=== PATIENT | female | born 1965 | race Caucasian/White ===

== ENCOUNTER 2018-04-09 07:06 | Day surgery (SDC) | payer OTHER, SELFPAY ==
[2018-04-09 07:32] VITALS: BP 113/55; PULSE 69; RESP 24; TEMP 36.7; O2SAT 95; BMI 23.8
[2018-04-09] MEDS: SODIUM CHLORIDE 0.9% 1,000 ML 200 ML IV (07:46)
--- NOTE | 2018-04-09 07:52 | PM.HP.1 ---
History of Present Illness Date Patient Seen: 04/09/18 Time Patient Seen: 07:52 Chief complaint: colonoscopy [id number] Narrative: 52-year-old female who presents for colorectal screening. She has never had any type of previous screening examination. On further history today she denies any recent gastrointestinal symptoms. Denies any nausea, vomiting, abdominal pain, loss of appetite, unexplained weight loss, change in bowel habits, diarrhea, constipation, melena, hematochezia, or bright red blood per rectum. Patient History Medical History Chronic back pain (Acute) Heart murmur (Acute) Migraine headache (Acute) Psoriasis (Acute) Surgical History History of section (Acute) History of sinus surgery (Acute) Family & Social History Family History: Reviewed 04/09/18 by Rusty Watkins MD Social History: household members spouse Tobacco & Substance use: Smoking Status Never smoker Meds Home Medications Medication Instructions Recorded Confirmed Type acetaminophen 325 mg PO PRN PRN #0 12/06/17 04/09/18 History diphenhydramine HCl [Banophen 2.5 mg PO PRN PRN #0 12/06/17 04/09/18 History Allergy] fluticasone [Flonase Allergy 9.9 ml INTRANASAL DAILY #0 12/06/17 04/09/18 History Relief] ondansetron 4 mg PO PRN PRN #0 12/06/17 04/09/18 History propranolol 10 mg PO DAILY #0 12/06/17 04/09/18 History zonisamide 100 mg capsule 100 mg PO QDAY #30 cap 03/06/18 04/09/18 Rx meloxicam 15 mg tablet 15 mg PO DAILY #30 tab 04/05/18 04/09/18 Rx Allergies Allergy/AdvReac Type Severity Reaction Status Date / Time gluten [GLUTEN] AdvReac Unknown HEADACHES Verified 04/09/18 07:21 Review of Systems Review of Systems All systems reviewed & are unremarkable except as noted in HPI and below Exam Vital Signs (past 8 hours): - 04/09/18 07:32 Temperature 98.1 F Pulse Rate 69 Respiratory Rate 24 Blood Pressure 113/55 L Pulse Oximetry 95 Oxygen Delivery Method Room Air Narrative Exam Narrative: Well-nourished well-developed female in no acute distress. Alert oriented x3. Sclera nonicteric Chest clear to auscultation bilaterally with regular rate and rhythm. Mild grade 1 systolic ejection murmur. No gallops or rubs. No crackles or wheezes Abdomen is soft, nondistended, nontender, no masses Extremities show no clubbing, cyanosis, or edema Objective Labs Labs: No recent laboratory or radiographic studies for review Assessment & Plan Plan: Assessment/Plan Narrative: 52-year-old female requiring colorectal screening by age criteria. Recommend colonoscopy. Technical details of the procedure were discussed at length. Risks, benefits, alternatives were explained. Risks including but not limited to sedation, aspiration, bleeding, pain, missed lesion, incomplete examination, need for further radiographic studies, colonic perforation, need for major abdominal surgery, and all attendant risks and major surgery were discussed at length. All questions were answered to her satisfaction, and she voiced understanding. Consent was placed on the chart. We will proceed as above.
--- NOTE | 2018-04-09 07:56 | PM.PREOP ---
Pre-operative Note Interval Note Pre-op Check: History & Physical Reviewed by Physician, Exam Performed and History & Physical exam performed today H&P completed within 30 days and has changed as indicated here:: Patient seen and examined today. History physical examination on the chart. Patient requires colorectal screening by age criteria. Proceed with colonoscopy today as planned. ASA Class (for procedural sedation): I
[2018-04-09] MEDS: fentaNYL 250 MCG/5 ML INJ IV (08:07)
[2018-04-09] MEDS: MIDAZOLAM 5 MG/5 ML VIAL IV (08:08)
--- NOTE | 2018-04-09 08:16 | PM.OP.ENDO ---
Operative Date/Time/Diagnoses Date of procedure: 04/09/18 Time of procedure: 08:16 Pre-op diagnosis: Colorectal screening Post-op diagnosis: other (Normal colon and rectum) Procedure & Clinicians Study performed: 1. Sedation per surgeon 2. Colonoscopy Same procedure as scheduled: Yes Indications: 52-year-old female who presents for colorectal screening. Colonoscopy is recommended. Surgeon: Rusty Watkins Procedure Notes SCOAP/Timeout: Yes Procedure in detail: After obtaining informed consent, the patient was brought to the GI suite and placed in the left lateral decubitus position on the examination table. After placement of appropriate monitors, the patient was given incremental doses of Versed and Fentanyl until an appropriate level of sedation was achieved. A time out was held per SCOAP protocol. A digital rectal examination was performed and did not reveal any masses or obstructing lesions. The colonoscope was gently passed into the patient's anus and the entire colon navigated to the level of the cecum with minimal difficulty. Once in the cecum, the scope was withdrawn being sure to go before and beyond all mucosal folds and prominences and get an excellent examination. The findings are noted above. At the level of the rectal vault, the scope was retroflexed and the internal anal canal was examined. The scope was straightened and air aspirated from the colon. The instrument was removed from the patient's body and the procedure was concluded. The patient was allowed to awaken from sedation without difficulty and taken to the post-anesthesia care unit in good condition. Scope withdrawal time: 8:35 min Sedation minutes: 17 Findings: other findings (Normal colon and rectum) Specimen(s): none sent Complications: none Recommendations: Colonscopy in 10 years Plan for aftercare: 1. Discharged home Follow up: as needed Disposition: same day surgery
[2018-04-09 08:17] VITALS: BP 99/58; PULSE 59; RESP 11; TEMP 36.4; O2SAT 93
[2018-04-09 08:22] VITALS: BP 98/53; PULSE 58; RESP 11; O2SAT 94
[2018-04-09 08:27] VITALS: BP 99/56; PULSE 69; RESP 15; TEMP 36.2; O2SAT 96
[2018-04-09 08:35] VITALS: BP 105/56; PULSE 58; RESP 18; TEMP 36.1; O2SAT 98
== END 2018-04-09 08:47 | disposition home or self-care (01) ==
PROVIDERS: PCP Physician Assistant Medical; Visit Provider Surgery
PROC: 0DJD8ZZ Inspection of Lower Intestinal Tract, Via Natural or Artificial Opening Endoscopic (ICD-10-PCS; CPT 45378; principal; 2018-04-09 07:45)
DX: Z12.11 Encounter for screening for malignant neoplasm of colon (principal)
CPT/HCPCS: 45378; 99152; J2250; J3010

== ENCOUNTER → 2018-05-07 06:47 | Outpatient (CLI) | payer OTHER, SELFPAY ==
--- NOTE | 2018-05-07 06:49 | DI.MRI.S_ITS ---
PROCEDURE: MR CERVICAL SPINE WO CON INDICATIONS: pain TECHNIQUE: Noncontrast sagittal T1 spin echo and T2 fast spin echo, sagittal STIR, foraminal oblique sagittal T2 fast spin echo, and axial gradient echo or T2 fast spin echo through the cervical spine. COMPARISON: None. FINDINGS: Image quality: Excellent. Alignment and Curvature: There is normal bony alignment. Bone Marrow: Marrow demonstrates normal overall signal. Spinal Cord: Visualized spinal cord has normal size and signal. No cerebellar tonsillar herniation. Paraspinous Soft Tissues: No paravertebral masses. Prevertebral soft tissues are normal in thickness. C2-C3: Disc degeneration with posterolateral annular bulge/osseous ridge, left greater than right, partially effacing the thecal sac. No cord distortion. Mild central canal stenosis. No foraminal stenosis. C3-C4: Disc degeneration with broad-based annular bulge accentuated on the right, effacing the thecal sac anteriorly with mild flattening of the ventral cord, moderate central stenosis. There is moderate right and mild left foraminal stenosis. C4-C5: Mild disc narrowing and moderate signal loss, mild posterior annular bulge. Left uncinate hypertrophy. Mild central canal and right foraminal stenosis. Moderate left foraminal stenosis. C5-C6: Mild disc narrowing and signal loss with broad-based annular bulge partially effacing the thecal sac, and no cord deformity, mild central canal stenosis. Mild bilateral facet arthropathy. Mild bilateral foraminal stenosis. C6-C7: Mild disc narrowing and signal loss with broad-based annular bulge/osseous ridge, uncinate hypertrophy best seen on oblique views. No cord deformity, mild central canal stenosis. Mild bilateral foraminal stenosis. C7-T1: Normal appearance. IMPRESSION: 1. Multilevel degenerative disc disease with annular bulging. 2. Moderate central canal stenosis at C3-4, mild at C2-3, C4-5, C5-6 and C6-7. 3. Foraminal stenosis is moderate on the right at C3-4 and on the left at C4-5. Mild foraminal stenosis at other levels. Dictated by: Cruziot Banegas M.D. on 05/07/2018 at 9:04 Approved by: Cruzito Banegas M.D. on 05/07/2018 at 9:20
== END ==
PROVIDERS: PCP Physician Assistant Medical; Visit Provider Physical Medicine & Rehabilitation
DX: M50.31 Other cervical disc degeneration, high cervical region (principal); M48.02 Spinal stenosis, cervical region; M50.21 Other cervical disc displacement, high cervical region; G89.29 Other chronic pain
CPT/HCPCS: 72141

== ENCOUNTER 2018-06-06 08:16 | Outpatient (CLI) | payer OTHER, SELFPAY ==
[2018-06-06] VITALS (11 sets, daily range): BP systolic 91–121; BP diastolic 43–73; PULSE 58–70; RESP 16–25; TEMP 36.6; O2SAT 97–100
--- NOTE | 2018-06-06 08:17 | DI.RAD.S_ITS ---
PROCEDURE: PAIN C/T INTERLAMINAR INJECT INDICATIONS: RADICULOPATHY FINDINGS: Fluoroscopic spot filming was performed to verify placement of spinal needles at the C6-C7 posterior paramedian interlaminar level(s), as labeled on the films. Appropriate location(s) of the needle tip(s) was confirmed by injection of iodinated contrast. IMPRESSION: Successful interlaminar needle tip localization at the C6-7 level for epidural steroid injection. Dictated by: José Long M.D. on 06/06/2018 at 14:04 Approved by: José Long M.D. on 06/06/2018 at 14:05
[2018-06-06] MEDS: LIDOCAINE 1% 20 ML INJ 5 ML INJ (09:19)
[2018-06-06] MEDS: DEXAMETHASONE 10 MG/ML VIAL 30 MG INJ (09:20)
[2018-06-06] MEDS: IOPAMIDOL 15 ML VIAL 3 ML INJ (09:20)
[2018-06-06] MEDS: MIDAZOLAM 5 MG/5 ML VIAL IV (09:21)
--- NOTE | 2018-06-06 09:32 | PM.PROC.1 ---
Procedures Date/Time Date of procedure: 06/06/18 Time of procedure: 09:32 General Procedure description: PREOP DIAGNOSIS 1. CERVICAL STENOSIS, 2. CERVICAL HNP WITH UPPER EXTREMITY RADICULAR FEATURES, POST OP DIAGNOSIS 1. CERVICAL STENOSIS, 2. CERVICAL HNP WITH UPPER EXTREMITY RADICULAR FEATURES, PROCEDURES 1. FLUORSCOPICALLY GUIDED CONTRAST CONTROLLED INTERLAMINAR EPIDURAL STEROID INJECTION - C6/7 TL PAUL PHYSICIAN: Devon Zheng, INDICATIONS Anaya is referred by PAC Manuel for treatment of Cervical HNP with Upper Extremity Paresthesias. FINDINGS Cervical Stenosis due to disc deterioration and nerve root irritation and nerve root irritation DESCRIPTION OF PROCEDURE Fluoroscopically guided, contrast-controlled C6/7 translaminar epidural steroid injection with conscious sedation. Following denial of allergy and review of potential side effects and complications, including, but not necessarily limited to, infection, allergic reaction, local tissue breakdown, temporary as well as permanent nerve injury, stroke, paralysis, and possible , the patient indicated that patient understood and agreed to proceed. An informed consent document was signed by the patient, witnessed by a nurse, and placed in the patient's chart. Additionally, other treatment options including modalities, medications, and physical therapy were reviewed with the patient. After review of previous anaesthesic history and IV conscious sedation the patient was deemed safe to proceed with todays procedure with IV conscious sedation as ASA class II designation. Safety time-out was performed to confirm patient ID, procedure to be performed and site of procedure. IV sedation was accomplished with a combination of 4mg of Versed administered by the RN after DO order, titrated to patient comfort during the course of the procedure while the patient remained responsive to all verbal commands. In the prone position, following sterile prep and drape of the cervical region, the C6/7 translaminar space was identified fluoroscopically. The skin was anesthetized via a 25-gauge 1.5-inch needle with 1% lidocaine solution. At this point, a 25-gauge, 2.5-inch short bevel spinal needle was atraumatically introduced and advanced under fluoroscopic guidance into epidural space at the C6/7 translaminar space. Depth was confirmed on lateral view. Radiological data, including multiple fluoroscopic views of the cervical spine, reveal a spinal needle at the C6/7 translaminar space. Lateral views then show placement of the needle in the epidural space. Subsequent views show contrast material flowing superiorly and inferiorly in the epidural space. DSA fluoroscopy with live contrast injection, once again, confirmed no vascular or intrathecal uptake. At this point, using loss of resistance technique with saline and air, the epidural space was entered. Following negative aspiration, injection of approximately 1.5 cc of Isovue-200 with live fluoroscopy in the AP view confirmed epidural flow in the epidural space without vascular or intrathecal uptake observed. Subsequently, a test dose of 1 cc of 1% lidocaine solution was injected and patient was observed for two minutes without signs or symptoms of complications, including abdominal pain, shortness of breath, bilateral upper or lower extremity weakness, nausea and vomiting, prior to steroid injection. At this point, 3 cc or 30 mg of dexamethasone was then injected without incident. The patient tolerated the procedure well without signs or symptoms of complications prior to being transferred to the recovery area for further monitoring, The patient was then transferred to the recovery area where they were observed for an appropriate period of time after the injection. The patient reported a VAS score of 6 prior to the procedure and a post-procedure VAS of 0. Total Fluoroscopy Time: 37.0 seconds Total Conscious Time: 24min POST OP INSTRUCTIONS The patient was provided a Pain Log to continue to record their response to the target-specific procedure prior to follow-up visit with the referring provider. Additionally, specific post-injection care instructions and a contact number to our office were provided if concerns arise regarding possible complications associated with the procedure are suspected. Devon Zheng DO Complications: none
--- NOTE | 2018-06-06 09:37 | PC.NURSE ---
PT NOTED TO HAVE LOW BUT STABLE AND CONSISTENT BP'S IN PRE AND POST-OP PROCEDURE ROOM OF 93/53 AND 96/56, ALL OTHER BP'S TAKEN WERE SIMILAR, SEE VITALS FOR MORE DETAILS. PT DENIES DIZZINESS, CONFUSION, LIGHT HEADEDNESS, ETC. PT STATED IN PRE-OP THAT SHE HISTORICALLY HAS LOW BP'S. CONSULTED WITH DR. MARQUEZ BEFORE PROCEDURE AND WILL UPON HIS ARRIVAL AFTER. DUE TO PT'S HISTORY, PHYSICAL PRESENTATION AND CONSISTENT BP'S, IV FLUIDS WERE NOT STARTED AT THIS TIME. WILL START IF PRESSURES ARE NOTED TO GO LOWER.
--- NOTE | 2018-06-06 09:43 | PC.NURSE ---
ALL VSS AND NEW BP CUFF PUT ONTO PT. NEW BP IS NOW HIGHER WITH NEW CUFF. PT CONTINUES TO DENY S/S OF LOW BP'S.
== END 2018-06-06 10:29 | disposition home or self-care (01) ==
PROVIDERS: PCP Physician Assistant Medical; Visit Provider Physical Medicine & Rehabilitation
DX: M48.02 Spinal stenosis, cervical region (principal); M50.123 Cervical disc disorder at C6-C7 level with radiculopathy
CPT/HCPCS: 62321; 99152; 99153; J1100; J2250

== ENCOUNTER → 2018-08-06 12:43 | Outpatient (CLI) | payer OTHER, SELFPAY ==
[2018-08-06 13:34] LABS: Add Manual Diff / Slide Review NO; Basophils Percent Auto 0.9 % (0-2); Eosinophils Percent Auto 1.6 % (2-4); Hematocrit 37.9 % (36-46); Hemoglobin 12.8 g/dL (12.0-16.0); Lymphocytes Percent Auto 28.7 % (25-40); Mean Corpuscular HGB Conc 33.7 % (30-36); Mean Corpuscular Hemoglobin 30.3 PG (26-34); Mean Corpuscular Volume 89.8 fL (80-100); Monocytes Percent Auto 8.1 % (3-14); Neutrophils Absolute Auto 2500 /uL (3000-5900); Neutrophils Percent Auto 60.7 % (50-75); Platelet Count 210 X10^3/uL (150-400); Red Blood Cell Count 4.22 X10^6/uL (4.0-5.2); Red Cell Distribution Width 13.1 % (11.6-14.8); White Blood Cell Count 4.1 X10^3/uL (4.5-11.0)
[2018-08-06 14:36] LABS: Alanine Aminotransferase 20 IU/L (9-52); Albumin 4.2 g/dL (3.5-5.0); Albumin Globulin Ratio 1.6 (1.0-2.8); Alkaline Phosphatase 48 U/L (38-126); Aspartate Aminotransferase 23 IU/L (14-36); BUN Creatinine Ratio 20.9 (6-22); Bilirubin Total 0.7 mg/dL (0.2-1.3); Blood Urea Nitrogen 23 mg/dL (7-17); Calcium 8.8 mg/dL (8.4-10.2); Carbon Dioxide 27 mmol/L (22-32); Chloride 104 mmol/L (98-107); Cholesterol 167 mg/dL (140-199); Estimated Glomerular Filt Rate 52.2 mL/min (>60); Globulin 2.7 g/dL (1.7-4.1); Glucose 82 mg/dL (70-100); HDL Cholesterol 55 mg/dL (40-60); HEMOLYSIS < 15 (0-50); LDL Cholesterol Calculated 101 mg/dL (<100); Potassium 4.4 mmol/L (3.4-5.1); Sodium 141 mmol/L (137-145); Total Protein 6.9 g/dL (6.3-8.2); Triglycerides 56 mg/dL (35-150)
== END ==
PROVIDERS: PCP Physician Assistant Medical; Visit Provider Physician Assistant Medical
DX: Z00.00 Encounter for general adult medical examination without abnormal findings (principal)
CPT/HCPCS: 36415; 80053; 80061; 84443; 85025

== ENCOUNTER → 2018-11-02 10:47 | Outpatient (CLI) | payer OTHER, SELFPAY ==
--- NOTE | 2018-11-02 | DI.MG.S_ITS ---
BILATERAL DIGITAL SCREENING MAMMOGRAM 3D/2D WITH CAD: 11/02/2018 CLINICAL: Routine screening. Comparison is made to exams dated: 11/28/2016 mammogram, 05/26/2016 mammogram, and 05/16/2016 mammogram - [facility]. The tissue of both breasts is heterogeneously dense. This may lower the sensitivity of mammography. Current study was also evaluated with a Computer Aided Detection (CAD) system. There is an oval equal density asymmetry with an indistinct margin in the right breast posterior depth medial region seen on the craniocaudal view only. No other significant masses, calcifications, or other findings are seen in either breast. IMPRESSION: INCOMPLETE: NEEDS ADDITIONAL IMAGING EVALUATION The oval equal density asymmetry in the right breast is indeterminate. Mediolateral and spot compression views as well as additional views with possible ultrasound are recommended. This exam was interpreted at Station ID: [id number]. NOTE: For mammograms, a report in lay terms will be sent to the patient. Approximately 15% of breast malignancies will not be visualized mammographically. In the management of a palpable breast mass, a negative mammogram must not discourage biopsy of a clinically suspicious lesion. Electronically Signed By: Jorge peña/juan:11/02/2018 11:57:27 letter sent: Additional Imaging Needed ACR BI-RADS Category 0: Incomplete [id number]
== END ==
PROVIDERS: PCP Physician Assistant Medical; Visit Provider Physician Assistant Medical
DX: Z12.31 Encounter for screening mammogram for malignant neoplasm of breast (principal)
CPT/HCPCS: 77063; 77067

== ENCOUNTER → 2019-01-08 14:06 | Outpatient (CLI) | payer OTHER, SELFPAY ==
--- NOTE | 2019-01-08 | DI.US.S_ITS ---
LIMITED ULTRASOUND OF RIGHT BREAST AND AXILLA: 01/08/2019 CLINICAL: Patient returns today to evaluate an asymmetry in the right breast. Comparison is made to exams dated: 01/08/2019 mammogram, 11/02/2018 mammogram, 11/28/2016 mammogram, and 05/26/2016 mammogram - [facility]. Real-time and Doppler ultrasound of the right breast 1-5 o'clock, and axilla regions were performed. Early scale images of the real-time examination were reviewed. There is a 1.0 x 0.8 x 0.5 cm oval circumscribed hypoechoic mass in the right breast at 1:00 position 4 cm from the nipple which demonstrates mild posterior acoustic enhancement and no vascularity on Doppler ultrasound. This may correlate with the asymmetry seen on comparison mammography. Targeted ultrasound of the right axilla demonstrates no right axillary lymphadenopathy. IMPRESSION: PROBABLY BENIGN 1) 1.0 cm probable fibroadenoma in the right breast at 1:00 position 4 cm from the nipple. This may correlate with the asymmetry seen on comparison mammography. A followup diagnostic mammogram and targeted right breast ultrasound in 6 months is recommended to demonstrate stability. 2) Targeted ultrasound of the right axilla demonstrates no right axillary lymphadenopathy. This exam was interpreted at Station ID: [id number]. Electronically Signed By: Milton Felix M.D. ecl/:01/09/2019 07:20:30 letter sent: Followup Recommended Ultrasound BI-RADS: 3 Probably benign
--- NOTE | 2019-01-08 | DI.MG.S_ITS ---
UNILATERAL RIGHT DIGITAL DIAGNOSTIC MAMMOGRAM 3D/2D WITH ADDITIONAL VIEWS: 01/08/2019 CLINICAL: Additional evaluation requested from prior study. Comparison is made to exams dated: 11/02/2018 mammogram, 11/28/2016 mammogram, and 05/26/2016 mammogram - [facility]. The tissue of right breast is heterogeneously dense. This may lower the sensitivity of mammography. Previously identified oval equal density asymmetry with an indistinct margin in the right breast posterior depth medial region seen on the craniocaudal view only on comparison screening mammograms persists with additional views. IMPRESSION: INCOMPLETE: NEEDS ADDITIONAL IMAGING EVALUATION Previously identified oval equal density asymmetry with an indistinct margin in the right breast posterior depth medial region seen on the craniocaudal view only on comparison screening mammograms persists with additional views. A targeted ultrasound is recommended for further evaluation, and will be performed immediately following this exam. This exam was interpreted at Station ID: [id number]. NOTE: For mammograms, a report in lay terms will be sent to the patient. Approximately 15% of breast malignancies will not be visualized mammographically. In the management of a palpable breast mass, a negative mammogram must not discourage biopsy of a clinically suspicious lesion. Electronically Signed By: Milton Felix M.D. ecl/:01/09/2019 07:15:53 ACR BI-RADS Category 0: Incomplete [id number]
== END ==
PROVIDERS: PCP Physician Assistant Medical; Visit Provider Physician Assistant Medical
DX: R92.8 Other abnormal and inconclusive findings on diagnostic imaging of breast (principal); D24.1 Benign neoplasm of right breast
CPT/HCPCS: 76642; 77065; G0279

== ENCOUNTER → 2019-10-25 14:20 | Outpatient (CLI) | payer OTHER, SELFPAY ==
--- NOTE | 2019-10-25 | DI.MG.S_ITS ---
BILATERAL DIGITAL DIAGNOSTIC MAMMOGRAM 3D/2D SHORT-TERM FOLLOW-UP: 10/25/2019 CLINICAL: Patient returns for 6 month follow up of right breast, due for bilateral exam. Comparison is made to exams dated: 01/08/2019 mammogram, 11/02/2018 mammogram, 11/28/2016 mammogram, 05/26/2016 mammogram, and 05/16/[address] mammogram - [facility]. The tissue of both breasts is heterogeneously dense. This may lower the sensitivity of mammography. There is an oval equal density asymmetry with an obscured, indistinct, and circumscribed margin in the right breast posterior depth medial region seen on the craniocaudal view only. This is not significantly changed. No other significant masses, calcifications, or other findings are seen in either breast. IMPRESSION: INCOMPLETE: NEEDS ADDITIONAL IMAGING EVALUATION The oval equal density asymmetry in the right breast is indeterminate. An ultrasound is recommended. This exam was interpreted at Station ID: [id number]. NOTE: For mammograms, a report in lay terms will be sent to the patient. Approximately 15% of breast malignancies will not be visualized mammographically. In the management of a palpable breast mass, a negative mammogram must not discourage biopsy of a clinically suspicious lesion. Electronically Signed By: Jorge peña/juan:10/25/2019 15:04:25 ACR BI-RADS Category 0: Incomplete [id number]
--- NOTE | 2019-10-25 | DI.US.S_ITS ---
LIMITED ULTRASOUND OF RIGHT BREAST: 10/25/2019 Comparison is made to exams dated: 10/25/2019 mammogram, 01/08/2019 ultrasound, 01/08/2019 mammogram, 11/02/2018 mammogram, 11/28/2016 mammogram, and 05/26/2016 mammogram - [facility]. Color flow and real-time ultrasound of the right breast 1 o'clock region were performed on the areas of interest. There is a 1 cm x 0.6 cm x 0.6 cm oval mass with a circumscribed margin in the right breast at 1 o'clock posterior depth. This oval mass is hypoechoic with a well-defined boundary and posterior acoustic enhancement. This abnormality is not significantly changed and likely correlates with mammography findings. Color flow imaging demonstrates that there is no vascularity present. IMPRESSION: PROBABLY BENIGN The 1 cm x 0.6 cm x 0.6 cm oval mass in the right breast is probably benign. Follow-up mammogram and ultrasound in 6 months is recommended. A follow-up mammogram and an ultrasound in 6 months is recommended to demonstrate stability. This exam was interpreted at Station ID: [id number]. Electronically Signed By: Jorge peña/:10/25/2019 15:42:55 letter sent: Followup Recommended Ultrasound BI-RADS: 3 Probably benign
== END ==
PROVIDERS: PCP Physician Assistant Medical; Visit Provider Physician Assistant Medical
DX: R92.8 Other abnormal and inconclusive findings on diagnostic imaging of breast (principal); N63.12 Unspecified lump in the right breast, upper inner quadrant
CPT/HCPCS: 76642; 77066; G0279

== ENCOUNTER → 2020-05-18 13:58 | Outpatient (CLI) | payer OTHER, SELFPAY ==
--- NOTE | 2020-05-18 14:01 | DI.RAD.S_ITS ---
PROCEDURE: XR CERVICAL SPINE 4V OR 5V INDICATIONS: Cervical radiculopathy TECHNIQUE: 5 total views of the cervical spine were acquired, including bilateral oblique views. COMPARISON: [facility], MR, MR CERVICAL SPINE WO CON, 05/07/2018, 7:10. FINDINGS: Bones: No fractures or dislocations to the T1 level. There is at least moderate disc space narrowing seen at the C3-C4 level, with associated endplate irregularity and sclerosis. Mild to moderate disc space narrowing is seen at C4-C5 and C5-C6 and C6-C7. On oblique images, there is moderate left-sided neural foraminal narrowing seen at C3-C4, C4-C5, and C5-C6. On the right, there is at least moderate neural foraminal narrowing seen at the C3-C4 and C4-C5, with moderate neural foraminal narrowing seen at C5-C6 and C6-C7. Soft tissues: No prevertebral soft tissue swelling. The visualized lung apices are unremarkable. IMPRESSION: Multiple levels of degenerative change are seen, which are better demonstrated on the prior cervical spine MRI from 2018. If clinically appropriate, please consider a follow-up cervical spine MRI Dictated by: Andrew Case M.D. on 05/18/2020 at 13:32 Approved by: Andrew Case M.D. on 05/18/2020 at 13:34
== END ==
PROVIDERS: PCP Physician Assistant Medical; Referring Provider Physical Medicine & Rehabilitation; Visit Provider Physical Medicine & Rehabilitation
DX: M50.20 Other cervical disc displacement, unspecified cervical region (principal); M47.812 Spondylosis without myelopathy or radiculopathy, cervical region
CPT/HCPCS: 72050

== ENCOUNTER → 2020-06-25 16:42 | Outpatient (CLI) | payer OTHER, SELFPAY ==
--- NOTE | 2020-06-25 16:44 | DI.MRI.S_ITS ---
PROCEDURE: MR CERVICAL SPINE WO CON INDICATIONS: Chronic progressive neck pain TECHNIQUE: Noncontrast sagittal T1 spin echo and T2 fast spin echo, sagittal STIR, foraminal oblique sagittal T2 fast spin echo, and axial gradient echo or T2 fast spin echo through the cervical spine. COMPARISON: [facility], MR, MR CERVICAL SPINE WO CON, 05/07/2018, 7:10. FINDINGS: Image quality: Excellent. Alignment and Curvature: Straightening of the normal lordotic curvature. Trace anterolisthesis of C2 on C3. Bone Marrow: No fracture Multilevel degenerative endplate sclerosis and spurring. Diffuse facet arthropathy. Spinal Cord: Visualized spinal cord has normal size and signal. No cerebellar tonsillar herniation. Paraspinous Soft Tissues: No paravertebral masses. Prevertebral soft tissues are normal in thickness. C2-C3: Minimal canal narrowing. No right foraminal stenosis. Mild left foraminal stenosis. No interval change C3-C4: Moderate right canal stenosis which appears progressed. Severe right foraminal stenosis with nerve root compression. Moderate to severe left foraminal stenosis. Overall, no interval change. C4-C5: Minimal canal narrowing. Moderate right foraminal stenosis with slight nerve root compression which may be slightly progressed since the prior study. Moderate left foraminal narrowing with slight nerve root compression, unchanged. C5-C6: Mild canal narrowing. Mild right foraminal stenosis. Severe left foraminal stenosis. No definite interval change although significant motion artifact on the prior comparison study. C6-C7: Mild canal narrowing. Severe bilateral foraminal stenosis with nerve root compression, grossly unchanged. C7-T1: Normal appearance. IMPRESSION: Slight interval progression of moderate right-sided canal stenosis at C3-C4 Slight interval progression of moderate right C4-C5 foraminal stenosis Numerous, bilateral additional foraminal stenoses as detailed above by spinal level Dictated by: Rolan Ramon M.D. on 06/26/2020 at 8:30 Approved by: Rolan Ramon M.D. on 06/26/2020 at 8:37
== END ==
PROVIDERS: PCP Physician Assistant Medical; Referring Provider Physical Medicine & Rehabilitation; Visit Provider Physical Medicine & Rehabilitation
DX: M47.812 Spondylosis without myelopathy or radiculopathy, cervical region (principal); M48.02 Spinal stenosis, cervical region
CPT/HCPCS: 72141

== ENCOUNTER → 2020-08-17 15:42 | Outpatient (CLI) | payer OTHER, SELFPAY ==
--- NOTE | 2020-08-17 15:47 | DI.CT.S_ITS ---
PROCEDURE: CT CERVICAL SPINE WO CON INDICATIONS: RADICULOPATHY, CERVICAL REGION TECHNIQUE: Noncontrast 3 mm thick sections acquired from the skull base to the T4 level. Sagittal and coronal reformats were then constructed. For radiation dose reduction, the following was used: automated exposure control, adjustment of mA and/or kV according to patient size. COMPARISON: [facility], MR, MR CERVICAL SPINE WO CON, 06/25/2020, 17:10. [facility], CR, XR CERVICAL SPINE 4V OR 5V, 05/18/2020, 14:02. [facility], MR, MR CERVICAL SPINE WO CON, 05/07/2018, 7:10. FINDINGS: Image quality: Excellent. Bones: No fractures or dislocations. Visualized superior ribs are intact. Degenerative changes are seen, with moderate to severe disc space narrowing at C3-C4, with at least moderate disc space narrowing at C4-C5, C5-C6, and C6-C7. Posteriorly directed endplate osteophytes are seen, which are worst at C3-C4, C5-C6, and C6-C7. At C3-C4, there is moderate to severe right-sided neural foraminal narrowing, with moderate central canal narrowing. At C4-C5, there is moderate bilateral neural foraminal narrowing seen. At C5-C6, at least moderate bilateral neural foraminal narrowing can be seen. At C6-C7, there is moderate to severe bilateral neural foraminal narrowing and mild to moderate central canal narrowing. Soft tissues: Prevertebral soft tissues are normal in thickness. No paravertebral hematomas. No apical pneumothoraces. IMPRESSION: Multiple levels of cervical spine degenerative change are seen, which are overall better displayed on recent prior MRI examination. Dictated by: Andrew Case M.D. on 08/17/2020 at 15:39 Approved by: Andrew Case M.D. on 08/17/2020 at 15:42
== END ==
PROVIDERS: PCP Physician Assistant Medical
DX: M54.12 Radiculopathy, cervical region (principal); M48.02 Spinal stenosis, cervical region
CPT/HCPCS: 72125

== ENCOUNTER → 2020-08-31 08:22 | Outpatient (CLI) | payer OTHER, SELFPAY ==
[2020-08-31 10:56] LABS: COVID19 -Nasal RAPID Negative (Negative)
== END ==
PROVIDERS: PCP Physician Assistant Medical; Visit Provider Physician Assistant
DX: Z11.59 Encounter for screening for other viral diseases (principal)
CPT/HCPCS: 87635

== ENCOUNTER 2020-09-01 09:41 | Outpatient (CLI) | payer OTHER, SELFPAY ==
[2020-09-01] VITALS (9 sets, daily range): BP systolic 103–133; BP diastolic 57–77; PULSE 60–70; RESP 13–20; TEMP 36.3–36.4; O2SAT 95–100
--- NOTE | 2020-09-01 09:41 | DI.RAD.S_ITS ---
PROCEDURE: PAIN C/T FACET INJ/BLK 1ST L INDICATIONS: SPINAL STENOSIS COMPARISON: [facility], CT, CT CERVICAL SPINE WO CON, 08/17/2020, 15:47. FINDINGS: Fluoroscopic spot filming was performed to verify placement of spinal needles at the right C3-C4, C4-C5, and C5-C6 level(s), as labeled on the films. Appropriate location(s) of the needle tip(s) was confirmed by injection of iodinated contrast. IMPRESSION: Intraprocedural examination within normal limits. Dictated by: Andrew Case M.D. on 09/01/2020 at 10:59 Approved by: Andrew Case M.D. on 09/01/2020 at 11:01
[2020-09-01] MEDS: MIDAZOLAM 5 MG/5 ML VIAL IV (10:51)
[2020-09-01] MEDS: fentaNYL 100 MCG/2 ML INJ 50 MCG IV (10:51)
[2020-09-01] MEDS: BUPIVACAINE 0.5% (PF) VIAL 2 ML INJ (10:54)
[2020-09-01] MEDS: DEXAMETHASONE 10 MG/ML VIAL 30 MG INJ (10:54)
[2020-09-01] MEDS: IOPAMIDOL 15 ML VIAL 3 ML INJ (10:54)
--- NOTE | 2020-09-01 11:08 | P.PCN_ITS ---
Date/Time/Diagnoses Date of procedure: 09/01/20 Time of procedure: 11:08 Pre-procedure diagnosis: 1. FACET ARTHROPATHY 2. AXIAL NECK PAIN Post-procedure diagnosis: same Procedure Notes Procedure: 1. FLUOROSCOPICALLY GUIDED, CONTRAST-CONTROLLED RIGHT C3/4, C4/5, C5/6 FACET JOINT INJECTIONS WITH CONSCIOUS SEDATION. Indications: [place] is referred by MILY Jackson for treatment of Axial Neck Pain Physician: Devon Zheng Total Fluoroscopy time (seconds): 12 Total sedation minutes: 15 Complications: none Procedure in detail & Post-procedure care: DESCRIPTION OF PROCEDURE Fluoroscopically guided, contrast-controlled right C3/4, C4/5, C5/6 facet joint injections with conscious sedation. Following review of allergy and review of potential side effects and complications, including, but not necessarily limited to, infection, allergic reaction, local tissue breakdown, stroke, temporary or permanent nerve injury and paralysis, the patient indicated that the patient understood and agreed to proceed. An informed consent document was signed by the patient, witnessed by a nurse, and placed in the patient's chart. Additionally, other treatment options including medications, modalities, and physical therapy were reviewed with the patient. After review of previous anaesthesic history and IV conscious sedation the patient was deemed safe to proceed with today?s procedure with IV conscious sedation as ASA class II designation. Safety time-out was performed to confirm patient ID, procedure to be performed and site of procedure. IV sedation was accomplished with a combination of 2mg of Versed and 50mcg of Fentanyl was administered by the RN after DO order, titrated to patient comfort during the course of the procedure while the patient remained responsive to all verbal commands In the prone position, following sterile prep and drape of the cervical spine region, the posterior aspect of the right C3/4, C4/5, C5/6 facet joints were identified fluoroscopically. The skin was anesthetized via a 25-gauge 1.5-inch needle with 1% lidocaine solution into the corresponding facet joints. At this point, a 25-gauge 2.5-inch spinal needle was atraumatically introduced and advanced under fluoroscopic guidance into the corresponding facet joints. Following negative aspiration, injections of approximately 0.2-cc of Isovue 200 confirmed interarticular placement without vascular uptake. At this point, a total of 1cc including 0.5cc or 5mg of dexamethasone combined with 0.5cc of 1% lidocaine solution was injected without complication into each of the corresponding facet joints. The patient tolerated the procedure well without signs or symptoms of complications prior to transfer to the recovery area continued monitoring without incident. The patient was then transferred to the recovery area where they were observed for an appropriate period of time after the injection. The patient reported a VAS score of 7 prior to the procedure and a post- procedure VAS of 0. POST OP INSTRUCTIONS They were provided a Pain Log to continue to record their response to the target-specific procedure prior to their follow-up visit with their referring physician. Additionally, specific post-injection care instructions and a contact number to our office were provided if concerns arise regarding possible complications associated with the procedure are suspected.
== END 2020-09-01 13:22 | disposition home or self-care (01) ==
PROVIDERS: PCP Physician Assistant Medical; Referring Provider Physical Medicine & Rehabilitation; Visit Provider Physical Medicine & Rehabilitation
DX: M47.812 Spondylosis without myelopathy or radiculopathy, cervical region (principal); M54.2 Cervicalgia
CPT/HCPCS: 64490; 64491; 64492; 99152; J1100; J2250; J3010

== ENCOUNTER → 2021-01-06 11:29 | Outpatient (CLI) | payer OTHER, SELFPAY ==
--- NOTE | 2021-01-06 | DI.MG.S_ITS ---
BILATERAL DIGITAL DIAGNOSTIC MAMMOGRAM 3D/2D: 01/06/2021 CLINICAL: Late follow up, due bilateral. Comparison is made to exams dated: 10/25/2019 mammogram, 01/08/2019 mammogram, 11/02/2018 mammogram, 11/28/2016 mammogram, 05/26/2016 mammogram, and 05/16/2016 mammogram - [facility]. The tissue of both breasts is heterogeneously dense. This may lower the sensitivity of mammography. No significant masses, calcifications, or other findings are seen in either breast. Specifically, no finding to correspond to the patient's sonographic abnormality. IMPRESSION: INCOMPLETE: NEEDS ADDITIONAL IMAGING EVALUATION There is no abnormality seen in the right breast to correspond with the mass and ultrasound finding at 1 o'clock in the posterior depth. Ultrasound is recommended for full evaluation of this area. This was performed immediately following this exam. This exam was interpreted at Station ID: [id number]. NOTE: For mammograms, a report in lay terms will be sent to the patient. Approximately 15% of breast malignancies will not be visualized mammographically. In the management of a palpable breast mass, a negative mammogram must not discourage biopsy of a clinically suspicious lesion. Electronically Signed By: Mago barragan/:01/06/2021 12:43:13 ACR BI-RADS Category 0: Incomplete [id number]
--- NOTE | 2021-01-06 11:31 | DI.US.S_ITS ---
ULTRASOUND OF RIGHT BREAST: 01/06/2021 CLINICAL: Followup right breast mass. Comparison is made to exams dated: 01/06/2021 mammogram, 10/25/2019 ultrasound, 10/25/2019 mammogram, 01/08/2019 ultrasound, 01/08/2019 mammogram, and 11/02/2018 mammogram - [facility]. Color flow and real-time ultrasound of the right breast were performed. Early scale images of the real-time examination were reviewed. There is a 0.7 cm x 0.9 cm x 0.5 cm round mass with an indistinct margin in the right breast at 1 o'clock posterior depth 4 cm from the nipple. This round mass is hypoechoic with posterior acoustic enhancement. This abnormality is not significantly changed. Color flow imaging demonstrates that there is no vascularity present. IMPRESSION: PROBABLY BENIGN The 0.9 cm round mass in the right breast is stable, most likely is a fibroadenoma and is probably benign. A follow-up right ultrasound in 6 months is recommended to demonstrate continued stability. Findings and recommendations were conveyed to the patient at time of exam. This exam was interpreted at Station ID: [id number]. Electronically Signed By: Mago barragan/:01/06/2021 12:57:33 letter sent: Followup Recommended Ultrasound BI-RADS: 3 Probably benign
== END ==
PROVIDERS: PCP Physician Assistant Medical; Referring Provider Family Medicine; Visit Provider Physician Assistant Medical
DX: R92.8 Other abnormal and inconclusive findings on diagnostic imaging of breast (principal); N63.12 Unspecified lump in the right breast, upper inner quadrant
CPT/HCPCS: 76642; 77066; G0279

== ENCOUNTER → 2021-07-12 08:24 | Outpatient (CLI) | payer OTHER, SELFPAY ==
[2021-07-12 13:36] LABS: COVID19 -Nasal RAPID Negative (Negative)
== END ==
PROVIDERS: PCP Physician Assistant Medical; Visit Provider Physical Medicine & Rehabilitation
DX: Z20.822 Contact with and (suspected) exposure to COVID-19 (principal)
CPT/HCPCS: 87635; C9803

== ENCOUNTER 2021-07-13 07:10 | Outpatient (CLI) | payer OTHER, SELFPAY ==
[2021-07-13] VITALS (8 sets, daily range): BP systolic 105–123; BP diastolic 49–67; PULSE 59–68; RESP 12–22; TEMP 36.7; O2SAT 92–99
--- NOTE | 2021-07-13 07:11 | DI.RAD.S_ITS ---
PROCEDURE: PAIN C/T FACET INJ/BLK 1ST L INDICATIONS: SPINAL STENOSIS COMPARISON: [facility], , PAIN C/T FACET INJ/BLK 1ST L, 09/01/2020, 10:54. FINDINGS: Fluoroscopic spot filming was performed to verify placement of spinal needles at the C3-C4, C4-C5, and C5-C6 levels on the right, as labeled on the films. Appropriate location(s) of the needle tip(s) was confirmed by injection of iodinated contrast. IMPRESSION: Intraprocedural examination within normal limits. Dictated by: Andrew Case M.D. on 07/13/2021 at 13:06 Approved by: Andrew Case M.D. on 07/13/2021 at 13:07
[2021-07-13] MEDS: fentaNYL 100 MCG/2 ML INJ 50 MCG IV (09:56)
[2021-07-13] MEDS: MIDAZOLAM 5 MG/5 ML VIAL IV (09:56)
[2021-07-13] MEDS: DEXAMETHASONE 10 MG/ML VIAL 30 MG INJ (10:03)
[2021-07-13] MEDS: IOPAMIDOL 15 ML VIAL 3 ML INJ (10:03)
[2021-07-13] MEDS: BUPIVACAINE 0.5% (PF) VIAL 2 ML INJ (10:03)
--- NOTE | 2021-07-13 10:17 | PM.PROC.IR.1 ---
Date/Time/Diagnoses Date of procedure: 07/13/21 Time of procedure: 10:17 Pre-procedure diagnosis: 1. FACET ARTHROPATHY 2. AXIAL NECK PAIN Post-procedure diagnosis: same Procedure Notes Procedure: 1. FLUOROSCOPICALLY GUIDED, CONTRAST-CONTROLLED RIGHT C3/4, C4/5, C5/6 FACET JOINT INJECTIONS WITH CONSCIOUS SEDATION. Indications: [place] is referred by PAC Manuel for treatment of Axial Neck Pain Physician: Devon Zheng Total Fluoroscopy time (seconds): 14 Total sedation minutes: 18 Complications: none Procedure in detail & Post-procedure care: DESCRIPTION OF PROCEDURE Fluoroscopically guided, contrast-controlled right C3/4, C4/5, C5/6 facet joint injections with conscious sedation. Following review of allergy and review of potential side effects and complications, including, but not necessarily limited to, infection, allergic reaction, local tissue breakdown, stroke, temporary or permanent nerve injury and paralysis, the patient indicated that the patient understood and agreed to proceed. An informed consent document was signed by the patient, witnessed by a nurse, and placed in the patient's chart. Additionally, other treatment options including medications, modalities, and physical therapy were reviewed with the patient. After review of previous anaesthesic history and IV conscious sedation the patient was deemed safe to proceed with today?s procedure with IV conscious sedation as ASA class II designation. Safety time-out was performed to confirm patient ID, procedure to be performed and site of procedure. IV sedation was accomplished with a combination of 2mg of Versed and 50mcg of Fentanyl was administered by the RN after DO order, titrated to patient comfort during the course of the procedure while the patient remained responsive to all verbal commands In the prone position, following sterile prep and drape of the cervical spine region, the posterior aspect of the right C3/4, C4/5, C5/6 facet joints were identified fluoroscopically. The skin was anesthetized via a 25-gauge 1.5-inch needle with 1% lidocaine solution into the corresponding facet joints. At this point, a 25-gauge 2.5-inch spinal needle was atraumatically introduced and advanced under fluoroscopic guidance into the corresponding facet joints. Following negative aspiration, injections of approximately 0.2-cc of Isovue 200 confirmed interarticular placement without vascular uptake. At this point, a total of 1cc including 0.5 cc or 5mg of dexamethasone combined with 0.5cc of 1% lidocaine solution was injected without complication into each of the corresponding facet joints. The patient tolerated the procedure well without signs or symptoms of complications prior to transfer to the recovery area continued monitoring without incident. The patient was then transferred to the recovery area where they were observed for an appropriate period of time after the injection. The patient reported a VAS score of 7 prior to the procedure and a post-procedure VAS of 0. POST OP INSTRUCTIONS They were provided a Pain Log to continue to record their response to the target-specific procedure prior to their follow-up visit with their referring physician. Additionally, specific post-injection care instructions and a contact number to our office were provided if concerns arise regarding possible complications associated with the procedure are suspected.
--- NOTE | 2021-07-13 10:53 | PC.NURSE ---
Sedation monitoring completed. Patient at baseline, VSS. Awaiting her daughter to finish with school to provide a ride home.
== END 2021-07-13 11:50 | disposition home or self-care (01) ==
LOC: RAD 07:10
PROVIDERS: PCP Physician Assistant Medical; Referring Provider Physical Medicine & Rehabilitation; Visit Provider Physical Medicine & Rehabilitation
DX: M47.812 Spondylosis without myelopathy or radiculopathy, cervical region (principal); M54.2 Cervicalgia
CPT/HCPCS: 64490; 64491; 64492; 99152; J1100; J2250; J3010

== ENCOUNTER → 2022-03-02 16:00 | Outpatient (CLI) | payer OTHER, SELFPAY ==
--- NOTE | 2022-03-02 16:02 | DI.MRI.S_ITS ---
PROCEDURE: MR LUMBAR SPINE WO CON INDICATIONS: Bilateral L5 radiculopathy TECHNIQUE: Noncontrast sagittal T1 spin echo and T2 fast echo, sagittal STIR, and T2 fast spin echo through the lumbar spine. In cases with scoliosis, additional coronal T2 fast spin echo may be performed. COMPARISON: [facility], , MRI L-SPINE W/O CONTRAST, 12/02/2014, 8:33. FINDINGS: Image quality: Excellent. Alignment and Curvature: Grade 1 L5-S1 anterolisthesis is seen, with associated bilateral L5 pars defects. Minimal retrolisthesis is seen at the L4-L5 level. Bone Marrow: Marrow is of normal overall signal. No acute vertebral body compression fractures. Spinal Cord: Conus medullaris terminates at the L1 level. Visualized cord demonstrates normal signal and size. Paraspinous Soft Tissues: No paravertebral masses. The right kidney is not well seen. T12-L1: Normal appearance. L1-L2: Normal appearance. L2-L3: At least moderate loss of disc height and disc signal can be seen. Reactive marrow endplate changes are seen anteriorly, which demonstrate mixed T1 weighted and T2-weighted signal, and are attributed to a combination of edema and fatty metaplasia (Modic type I and Modic type II changes). Mild to moderate disc bulge is seen, with a mild central disc. Mild bilateral neural foraminal narrowing is seen. Mild central canal narrowing is seen. These imaging findings have progressed compared to the prior study. L3-L4: At least moderate loss of disc height and disc signal can be seen. Moderate disc bulge is seen, which is eccentric to the right. Mild to moderate facet hypertrophy is seen. Mild bilateral neural foraminal narrowing is seen. Mild central canal narrowing is seen. When comparison is made with the prior images, these findings are similar. L4-L5: At least moderate loss of disc height and disc signal can be seen. Moderate disc bulge is seen, which is eccentric to the right. Mild to moderate facet hypertrophy is seen. Moderate bilateral neural foraminal narrowing can be seen, right worse than left. Minimal central canal narrowing is seen. When comparison is made with the prior images, these findings are similar. L5-S1: Moderate loss of disc height is seen. Loss of disc signal is seen. Moderate generalized disc bulge is seen. There is a superimposed central disc protrusion. There is a focal annular fissure seen posteriorly. Moderate facet joint hypertrophy is seen. There is at least moderate right-sided and moderate to severe left-sided neural foraminal narrowing. There is a degree of compression seen upon the exiting right L5 nerve root. No central canal narrowing is seen. These imaging findings have progressed compared to the prior study. IMPRESSION: Grade 1 L5-S1 anterolisthesis is seen, with associated bilateral L5 pars defects. [id number] disc space narrowing is seen at this level. The degenerative changes at this level have clearly progressed compared to 2015. Milder lower lumbar spine degenerative changes are seen, which are relatively similar to 2015, yet have mildly progressed at L2-L3. The right kidney is not well seen and presumed to be atrophic. Dictated by: Andrew Case M.D. on 03/02/2022 at 16:26 Approved by: Andrew Case M.D. on 03/02/2022 at 16:31
== END ==
PROVIDERS: PCP Physician Assistant Medical; Referring Provider Physical Medicine & Rehabilitation; Visit Provider Physical Medicine & Rehabilitation
DX: M47.26 Other spondylosis with radiculopathy, lumbar region (principal); M47.27 Other spondylosis with radiculopathy, lumbosacral region; G89.29 Other chronic pain; M43.17 Spondylolisthesis, lumbosacral region
CPT/HCPCS: 72148

== ENCOUNTER → 2022-04-06 09:15 | Outpatient (CLI) | payer OTHER, SELFPAY ==
[2022-04-06 11:53] LABS: COVID19 -Nasal RAPID Negative (Negative)
== END ==
PROVIDERS: PCP Physician Assistant Medical; Visit Provider Physical Medicine & Rehabilitation
DX: Z20.822 Contact with and (suspected) exposure to COVID-19 (principal)
CPT/HCPCS: 87635; C9803

== ENCOUNTER 2022-04-07 08:42 | Outpatient (CLI) | payer OTHER, SELFPAY ==
[2022-04-07] VITALS (9 sets, daily range): BP systolic 102–122; BP diastolic 53–70; PULSE 64–81; RESP 13–21; TEMP 36.7; O2SAT 98–100
--- NOTE | 2022-04-07 08:43 | DI.RAD.S_ITS ---
PROCEDURE: PAIN C/T FACET INJ/BLK 1ST L INDICATIONS: SPINAL STENOSIS COMPARISON: [facility], , PAIN C/T FACET INJ/BLK 1ST L, 07/13/2021, 10:03. FINDINGS: Fluoroscopic spot filming was performed to verify placement of spinal needles on the right at the C3-C4, C4-C5, and C5-C6 levels, as labeled on the films. Appropriate location of the needle tips was confirmed by injection of iodinated contrast. IMPRESSION: Intraprocedural examination demonstrating appropriate positions of the needles. Dictated by: Andrew Case M.D. on 04/07/2022 at 12:01 Approved by: Andrew Case M.D. on 04/07/2022 at 12:01
[2022-04-07] MEDS: MIDAZOLAM 2 MG/2 ML VIAL 4 MG IV (09:59)
[2022-04-07] MEDS: DEXAMETHASONE 10 MG/ML VIAL 30 MG INJ (09:59)
[2022-04-07] MEDS: IOPAMIDOL 15 ML VIAL 3 ML INJ (09:59)
[2022-04-07] MEDS: BUPIVACAINE 0.5% (PF) VIAL 2 ML INJ (09:59)
--- NOTE | 2022-04-07 10:13 | P.PCN_ITS ---
Date/Time/Diagnoses Date of procedure: 04/07/22 Time of procedure: 10:13 Pre-procedure diagnosis: 1. FACET ARTHROPATHY 2. AXIAL NECK PAIN Post-procedure diagnosis: same Procedure Notes Procedure: 1. FLUOROSCOPICALLY GUIDED, CONTRAST-CONTROLLED RIGHT C3/4, C4/5, C5/6 FACET JOINT INJECTIONS WITH CONSCIOUS SEDATION. Indications: [place] is referred by PAC Manuel for treatment of Axial Neck Pain Physician: Devon Zheng Total Fluoroscopy time (seconds): 8 Total sedation minutes: 13 Complications: none Procedure in detail & Post-procedure care: DESCRIPTION OF PROCEDURE Fluoroscopically guided, contrast-controlled right C3/4, C4/5, C5/6 facet joint injections with conscious sedation. Following review of allergy and review of potential side effects and complications, including, but not necessarily limited to, infection, allergic reaction, local tissue breakdown, stroke, temporary or permanent nerve injury and paralysis, the patient indicated that the patient understood and agreed to proceed. An informed consent document was signed by the patient, witnessed by a nurse, and placed in the patient's chart. Additionally, other treatment options including medications, modalities, and physical therapy were reviewed with the patient. After review of previous anaesthesic history and IV conscious sedation the patient was deemed safe to proceed with today?s procedure with IV conscious sedation as ASA class II designation. Safety time-out was performed to confirm patient ID, procedure to be performed and site of procedure. IV sedation was accomplished with a combination of 4mg of Versed was administered by the RN after DO order, titrated to patient comfort during the course of the procedure while the patient remained responsive to all verbal commands In the prone position, following sterile prep and drape of the cervical spine region, the posterior aspect of the right C3/4, C4/5, C5/6 facet joints were identified fluoroscopically. The skin was anesthetized via a 25-gauge 1.5-inch needle with 1% lidocaine solution into the corresponding facet joints. At this point, a 25-gauge 2.5-inch spinal needle was atraumatically introduced and advanced under fluoroscopic guidance into the corresponding facet joints. Following negative aspiration, injections of approximately 0.2-cc of Isovue 200 confirmed interarticular placement without vascular uptake. At this point, a total of 1cc including 0.5cc or 5mg of dexamethasone combined with 0.5cc of 1% lidocaine solution was injected without complication into each of the corresponding facet joints. The patient tolerated the procedure well without signs or symptoms of complications prior to transfer to the recovery area continued monitoring without incident. The patient was then transferred to the recovery area where they were observed for an appropriate period of time after the injection. The patient reported a VAS score of 7 prior to the procedure and a post- procedure VAS of 0. POST OP INSTRUCTIONS They were provided a Pain Log to continue to record their response to the target-specific procedure prior to their follow-up visit with their referring physician. Additionally, specific post-injection care instructions and a contact number to our office were provided if concerns arise regarding possible complications associated with the procedure are suspected.
== END 2022-04-07 10:37 | disposition home or self-care (01) ==
LOC: RAD 08:43
PROVIDERS: PCP Physician Assistant Medical; Referring Provider Physical Medicine & Rehabilitation; Visit Provider Physical Medicine & Rehabilitation
DX: M47.812 Spondylosis without myelopathy or radiculopathy, cervical region (principal)
CPT/HCPCS: 64490; 64491; 64492; 99152; J1100; J2250

== ENCOUNTER → 2022-05-19 13:02 | Outpatient (CLI) | payer OTHER, SELFPAY ==
--- NOTE | 2022-05-19 13:06 | DI.RAD.S_ITS ---
PROCEDURE: XR LUMBAR SPINE MIN 4V INDICATIONS: Bilateral L5 radiculopathy TECHNIQUE: 5 views of the lumbar spine acquired, including flexion and extension views. COMPARISON: None. FINDINGS: Bones: 5 nonrib-bearing vertebrae are present. No vertebral body compression fractures. No suspicious bony lesions. Oblique images show probable L5 pars defect associated with grade 1 anterior spondylolisthesis. Degenerative disc space narrowing hypertrophic facet joints noted in the mid to lower thoracic spine Soft tissues: Overlying bowel gas pattern is normal. No suspicious soft tissue calcifications. IMPRESSION: 1. Grade 1 isthmic spondylolisthesis L5-S1 2. Multilevel degenerative disc disease and arthropathy Approved by: Kade Lara M.D. on 05/19/2022 at 15:54
== END ==
PROVIDERS: PCP Physician Assistant Medical; Referring Provider Physical Medicine & Rehabilitation; Visit Provider Physical Medicine & Rehabilitation
DX: M51.16 Intervertebral disc disorders with radiculopathy, lumbar region (principal); M47.26 Other spondylosis with radiculopathy, lumbar region; M43.17 Spondylolisthesis, lumbosacral region; M47.22 Other spondylosis with radiculopathy, cervical region; M54.9 Dorsalgia, unspecified; G89.29 Other chronic pain
CPT/HCPCS: 72110; 99214

== ENCOUNTER → 2022-09-01 09:39 | Outpatient (CLI) | payer OTHER, SELFPAY ==
--- NOTE | 2022-09-01 | DI.US.S_ITS ---
LIMITED ULTRASOUND OF RIGHT BREAST AND AXILLA: 09/01/2022 CLINICAL: 18 month follow-up of cysts. Comparison is made to exams dated: 09/01/2022 mammogram, 01/06/2021 ultrasound, 01/06/2021 mammogram, 10/25/2019 ultrasound, 10/25/2019 mammogram, and 01/08/2019 [facility]. Color flow and real-time ultrasound of the right breast 1 o'clock, and axilla regions were performed. Early scale images of the real-time examination were reviewed. There is a stable 0.8 cm x 0.6 cm x 0.5 cm oval mass in the right breast at 1 o'clock middle depth 4 cm from the nipple. This oval mass is hypoechoic. Color flow imaging demonstrates that there is no vascularity present. No significant abnormalities were seen sonographically in the right breast or the right axilla. IMPRESSION: BENIGN There is no sonographic evidence of malignancy. Right breast mass measuring 0.8 cm most likely is a fibroadenoma and demonstrates long-term stability and is benign. No enlarged right axillary lymph nodes. A 1 year screening mammogram is recommended. This exam was interpreted at Station ID: [id number]. Electronically Signed By: Hugh López M.D. slc/:09/01/2022 10:50:40 letter sent: Normal Exam Ultrasound BI-RADS: 2 Benign
--- NOTE | 2022-09-01 | DI.MG.S_ITS ---
BILATERAL DIGITAL DIAGNOSTIC MAMMOGRAM 3D/2D SHORT-TERM FOLLOW-UP: 09/01/2022 CLINICAL: Patient returns for a 6 month follow up of the right breast, due for bilateral exam. Comparison is made to exams dated: 01/06/2021 mammogram, 10/25/2019 mammogram, 11/02/2018 mammogram, and 01/06/2021 [facility]. Both breasts are heterogeneously dense, which may obscure small masses (category c / 51-75% glandular tissue). Asymmetry in the right breast slightly medial to the nipple posterior depth seen on the CC view is not significantly changed. No significant masses, calcifications, or other findings are seen in either breast. IMPRESSION: INCOMPLETE: NEEDS ADDITIONAL IMAGING EVALUATION Right breast asymmetry is not significantly changed. A targeted ultrasound is recommended and will immediately follow. Based on the Tyrer Cuzick model (a risk assessment model) the patient's lifetime risk is 13.9% and her 10 year risk is 4.6%. According to the ACR, ACS, and NCCN guidelines, an annual breast MRI exam along with mammogram is recommended if the patient's lifetime risk is 20% or greater. This exam was interpreted at Station ID: [id number]. NOTE: For mammograms, a report in lay terms will be sent to the patient. Approximately 15% of breast malignancies will not be visualized mammographically. In the management of a palpable breast mass, a negative mammogram must not discourage biopsy of a clinically suspicious lesion. Electronically Signed By: Hugh López M.D. slc/:09/01/2022 10:11:51 ACR BI-RADS Category 0: Incomplete [id number]
== END ==
PROVIDERS: PCP Physician Assistant Medical; Referring Provider Physician Assistant Medical; Visit Provider Physician Assistant Medical
DX: R92.8 Other abnormal and inconclusive findings on diagnostic imaging of breast (principal); N63.12 Unspecified lump in the right breast, upper inner quadrant
CPT/HCPCS: 76642; 77066; G0279

== ENCOUNTER 2023-05-25 08:51 | Outpatient (CLI) | payer OTHER, SELFPAY ==
[2023-05-25] VITALS (10 sets, daily range): BP systolic 107–161; BP diastolic 56–80; PULSE 55–73; RESP 14–20; TEMP 36.7; O2SAT 95–99
--- NOTE | 2023-05-25 08:55 | DI.RAD.S_ITS ---
PROCEDURE: PAIN C/T FACET INJ/BLK 1ST L INDICATIONS: SPINAL STENOSIS COMPARISON: [facility], , PAIN C/T FACET INJ/BLK 1ST L, 04/07/2022, 10:00. FINDINGS: Fluoroscopic spot filming was performed to verify placement of spinal needles on the right at the C3-C4, C4-C5, and C5-C6 levels, as labeled on the films. Appropriate location of the needle tips was confirmed by injection of iodinated contrast. IMPRESSION: Intraprocedural examination demonstrating appropriate positions of the needles. Dictated by: Andrew Case M.D. on 05/25/2023 at 12:23 Approved by: Andrew Case M.D. on 05/25/2023 at 12:24
[2023-05-25] MEDS: MIDAZOLAM 2 MG/2 ML VIAL IV (09:42)
[2023-05-25] MEDS: DEXAMETHASONE 10 MG/ML VIAL 20 MG INJ (09:47)
[2023-05-25] MEDS: IOPAMIDOL 15 ML VIAL 3 ML INJ (09:48)
[2023-05-25] MEDS: BUPIVACAINE 0.25% (PF) VIAL 2 ML INJ (09:50)
[2023-05-25] MEDS: fentaNYL 100 MCG/2 ML INJ 50 MCG IV (09:50)
--- NOTE | 2023-05-25 10:06 | P.PCN_ITS ---
Date/Time/Diagnoses Date of procedure: 05/25/23 Time of procedure: 10:06 Pre-procedure diagnosis: 1. FACET ARTHROPATHY 2. AXIAL NECK PAIN Post-procedure diagnosis: same Procedure Notes Procedure: 1. FLUOROSCOPICALLY GUIDED, CONTRAST-CONTROLLED RIGHT C3/4, C4/5, C5/6 FACET JOINT INJECTIONS WITH CONSCIOUS SEDATION. Indications: [place] is referred by Dr. Mejia for treatment of Axial Neck Pain Physician: Devon Zheng Total Fluoroscopy time (seconds): 17 Total sedation minutes: 18 Complications: none Procedure in detail & Post-procedure care: DESCRIPTION OF PROCEDURE Fluoroscopically guided, contrast-controlled right C3/4, C4/5, C5/6 facet joint injections with conscious sedation. Following review of allergy and review of potential side effects and complications, including, but not necessarily limited to, infection, allergic reaction, local tissue breakdown, stroke, temporary or permanent nerve injury and paralysis, the patient indicated that the patient understood and agreed to proceed. An informed consent document was signed by the patient, witnessed by a nurse, and placed in the patient's chart. Additionally, other treatment options including medications, modalities, and physical therapy were reviewed with the patient. After review of previous anaesthesic history and IV conscious sedation the patient was deemed safe to proceed with today?s procedure with IV conscious sed ation as ASA class II designation. Safety time-out was performed to confirm patient ID, procedure to be performed and site of procedure. IV sedation was accomplished with a combination of 2mg of Versed and 50mcg of Fentanyl was administered by the RN after DO order, titrated to patient comfort during the course of the procedure while the patient remained responsive to all verbal commands In the prone position, following sterile prep and drape of the cervical spine region, the posterior aspect of the right C3/4, C4/5, C5/6 facet joints were identified fluoroscopically. The skin was anesthetized via a 25-gauge 1.5-inch needle with 1% lidocaine solution into the corresponding facet joints. At this point, a 25-gauge 2.5-inch spinal needle was atraumatically introduced and advanced under fluoroscopic guidance into the corresponding facet joints. Following negative aspiration, injections of approximately 0.2-cc of Isovue 200 confirmed interarticular placement without vascular uptake. At this point, a total of 1cc including 0.5 cc or 5mg of dexamethasone combined with 0.5 cc of 1% lidocaine solution was injected without complication into each of the corresponding facet joints. The procedure tolerated the procedure well without signs or symptoms of complications prior to transfer to the recovery area continued monitoring without incident. The patient was then transferred to the recovery area where they were observed for an appropriate period of time after the injection. The patient reported a VAS score of 7 prior to the procedure and a post- procedure VAS of 1. POST OP INSTRUCTIONS They were provided a Pain Log to continue to record their response to the target-specific procedure prior to their follow-up visit with their referring physician. Additionally, specific post-injection care instructions and a contact number to our office were provided if concerns arise regarding possible complications associated with the procedure are suspected.
== END 2023-05-25 10:23 | disposition home or self-care (01) ==
LOC: RAD 08:54
PROVIDERS: Referring Provider Physical Medicine & Rehabilitation; Visit Provider Physical Medicine & Rehabilitation
DX: M47.812 Spondylosis without myelopathy or radiculopathy, cervical region (principal)
CPT/HCPCS: 64490; 64491; 64492; 99152; J1100; J2250; J3010

== ENCOUNTER → 2024-02-07 10:10 | Outpatient (CLI) | payer OTHER, SELFPAY ==
--- NOTE | 2024-02-07 10:12 | DI.RAD.S_ITS ---
PROCEDURE: XR CERVICAL SPINE 4V OR 5V INDICATIONS: NECK PAIN TECHNIQUE: 5 views of the cervical spine acquired. COMPARISON: [facility], CR, XR CERVICAL SPINE 4V OR 5V, 05/18/2020, 14:02. FINDINGS: Bones: No fractures or dislocations to the C7 level. Straightening of the normal cervical lordosis. Moderate multilevel degenerative changes with osteophytosis, disc height loss and facet/uncal arthropathy, notably at C3-C4. Multilevel osseous neural foraminal narrowing, notably at left C6-C7 and right C5-C6 and C6-C7. Oblique images demonstrate no bony foraminal stenoses. Soft tissues: No prevertebral soft tissue swelling. Visualized lung apices are clear. IMPRESSION: 1. No acute fracture or traumatic subluxation. 2. Moderate multilevel degenerative changes, notably at C3-C4. 3. Multilevel osseous neural foraminal narrowing, notably at left C6-C7 and right C5-C6 and C6-C7. Dictated by: Kade Connors M.D. on 02/07/2024 at 11:58 Approved by: Kade Connors M.D. on 02/07/2024 at 12:00
== END ==
PROVIDERS: Referring Provider Physical Medicine & Rehabilitation; Visit Provider Physical Medicine & Rehabilitation
DX: M47.812 Spondylosis without myelopathy or radiculopathy, cervical region (principal); M50.20 Other cervical disc displacement, unspecified cervical region; M48.02 Spinal stenosis, cervical region
CPT/HCPCS: 72050

== ENCOUNTER 2024-03-05 14:47 | Outpatient (CLI) | payer OTHER, SELFPAY ==
[2024-03-05] VITALS (8 sets, daily range): BP systolic 113–143; BP diastolic 58–65; PULSE 63–73; RESP 13–20; TEMP 36.9; O2SAT 98–100
--- NOTE | 2024-03-05 16:00 | DI.RAD.S_ITS ---
PROCEDURE: PAIN L INTERLAMINAR/CAUDAL INJ INDICATIONS: L5-S1 translaminar PAUL COMPARISON: None. FINDINGS: Fluoroscopic spot filming was performed to verify placement of spinal needles at the L5-S1 level(s), as labeled on the films. Appropriate location(s) of the needle tip(s) was confirmed by injection of iodinated contrast. IMPRESSION: Intra procedural examination demonstrating appropriate positions of the needles. Dictated by: Honorio Mendez M.D. on 03/06/2024 at 9:24 Approved by: Honorio Mendez M.D. on 03/06/2024 at 9:24
[2024-03-05] MEDS: MIDAZOLAM 2 MG/2 ML VIAL IV (17:02)
[2024-03-05] MEDS: iopamidoL 15 ML VIAL 3 ML INJ (17:06)
[2024-03-05] MEDS: BETAMETHASONE 30 MG/5 ML MDV 6 MG INJ (17:06)
[2024-03-05] MEDS: BUPIVACAINE 0.25% (PF) VIAL 2 ML INJ (17:06)
[2024-03-05] MEDS: DEXAMETHASONE 10 MG/ML VIAL INJ (17:07)
--- NOTE | 2024-03-05 17:17 | PM.PROC.IR.1 ---
Date/Time/Diagnoses Date of procedure: 03/05/24 Time of procedure: 17:17 Pre-procedure diagnosis: 1. HNP WITH RADICULAR FEATURES, 2. MULTILEVEL CENTRAL STENOSIS, Post-procedure diagnosis: same Procedure Notes Procedure: 1. FLUOROSCOPICALLY GUIDED CONTRAST CONTROLLED INTERLAMINAR EPIDURAL STEROID INJECTION - L5/S1 Indications: [place] is referred for treatment of Bilateral Foraminal Stenosis L>R LE symptoms. Physician: Devon Zheng Total Fluoroscopy time (seconds): 6 Total sedation minutes: 10 Complications: none Procedure in detail & Post-procedure care: FINDINGS Multilevel Central Spinal Stenosis with Nerve Root Compression DESCRIPTION OF PROCEDURE Fluoroscopically guided, contrast-controlled L5/S1 translaminar epidural steroid injection. Following review of allergy and review of potential side effects and complications, including, but not necessarily limited to, infection, allergic reaction, local tissue breakdown, temporary as well as permanent nerve injury, paralysis, stroke and possible , the patient indicated that the patient understood and agreed to proceed. An informed consent document was signed by the patient, witnessed by a nurse, and placed in the patient's chart. Additionally, other treatment options including modalities, medications, and physical therapy were reviewed with the patient. After review of previous anaesthesic history and IV conscious sedation the patient was deemed safe to proceed with today?s procedure with IV conscious sedation as ASA class II designation. Safety time-out was performed to confirm patient ID, procedure to be performed and site of procedure. IV sedation was accomplished with a combination of 2mg of Versed administered by the RN after DO order, titrated to patient comfort during the course of the procedure while the patient remained responsive to all verbal commands. In the prone position, following sterile prep and drape of the lumbar region, the L5/S1 translaminar space was identified fluoroscopically. The skin was anesthetized via a 25-gauge, 1.5-inch needle with 1% lidocaine solution. At this point, a 22-gauge short bevel spinal needle was atraumatically introduced and advanced under fluoroscopic guidance into the region of the L5/S1 translaminar space. Depth was confirmed on lateral view. Radiological data, including multiple fluoroscopic views of the lumbar spine, reveal a spinal needle at the L5/S1 translaminar space. Lateral views then show placement of the needle in the epidural space. Subsequent views show contrast material flowing superiorly and inferiorly in the epidural space. No vascular or intrathecal uptake is observed. At this point, using loss of resistance technique with saline and air, the epidural space was entered. This was confirmed following negative aspiration with injection of approximately 1.5cc of Isovue 200, showing excellent epidural flow without vascular or intrathecal uptake. At this point, 1 cc of 1% lidocaine solution combined with 2cc or 10mg of dexamethasone and 6mg of betamethasone was injected without incident. The patent tolerated the procedure without signs of symptoms of complications prior to transfer to the recovery area for further monitoring. The patient was then transferred to the recovery area where they were observed for an appropriate period of time after the injection. The patient reported a VAS score of 6 prior to the procedure and a post-procedure VAS of 0. POST OP INSTRUCTIONS The patient was provided a Pain Log to continue to record their response to the target-specific procedure prior to follow-up visit with their referring physician. Additionally, specific post-injection care instructions and a contact number to our office were provided if concerns arise regarding possible complications associated with the procedure are suspected.
== END 2024-03-05 17:35 | disposition home or self-care (01) ==
LOC: RAD 14:48
PROVIDERS: Referring Provider Physical Medicine & Rehabilitation; Visit Provider Physical Medicine & Rehabilitation
DX: M51.17 Intervertebral disc disorders with radiculopathy, lumbosacral region (principal); M48.07 Spinal stenosis, lumbosacral region
CPT/HCPCS: 62323; 99152; J0702; J1100; J2250; J3490

== ENCOUNTER 2024-04-11 08:55 | Outpatient (CLI) | payer OTHER, SELFPAY ==
[2024-04-11] VITALS (10 sets, daily range): BP systolic 117–137; BP diastolic 58–86; PULSE 64–105; RESP 11–16; TEMP 36.6; O2SAT 95–99
--- NOTE | 2024-04-11 09:45 | DI.RAD.S_ITS ---
PROCEDURE: PAIN C/T FACET INJ/BLK 1ST L INDICATIONS: Right-sided C3-4, C4-5 and C5-6 facet joint injection COMPARISON: [facility], , PAIN C/T FACET INJ/BLK 1ST L, 05/25/2023, 9:49. FINDINGS: Fluoroscopic spot filming was performed to verify placement of spinal needles at the right C3-4, C4-5, and C5-6 facet level(s), as labeled on the films. Appropriate location(s) of the needle tip(s) was confirmed by injection of iodinated contrast. IMPRESSION: Intraoperative fluoroscopy for multilevel right-sided cervical facet joint injection. Dictated by: Mago Santiago M.D. on 04/11/2024 at 16:34 Approved by: Mago Santiago M.D. on 04/11/2024 at 16:36
[2024-04-11] MEDS: MIDAZOLAM 2 MG/2 ML VIAL IV (10:17)
[2024-04-11] MEDS: BUPIVACAINE 0.5% (PF) 10 ML VIAL 2 ML INJ (10:21)
[2024-04-11] MEDS: iopamidoL 15 ML VIAL 3 ML INJ (10:21)
[2024-04-11] MEDS: DEXAMETHASONE 10 MG/ML VIAL 30 MG INJ (10:22)
[2024-04-11] MEDS: fentaNYL 100 MCG/2 ML INJ 50 MCG IV (10:26)
--- NOTE | 2024-04-11 10:42 | PM.PROC.IR.1 ---
Date/Time/Diagnoses Date of procedure: 04/11/24 Time of procedure: 10:42 Pre-procedure diagnosis: 1. FACET ARTHROPATHY 2. AXIAL NECK PAIN Post-procedure diagnosis: same Procedure Notes Procedure: 1. FLUOROSCOPICALLY GUIDED, CONTRAST-CONTROLLED RIGHT C3/4, C4/5, C5/6 FACET JOINT INJECTIONS WITH CONSCIOUS SEDATION. Indications: [place] is referred for treatment of Axial Neck Pain Physician: Devon Zheng Total Fluoroscopy time (seconds): 15 Total sedation minutes: 20 Complications: none Procedure in detail & Post-procedure care: DESCRIPTION OF PROCEDURE Fluoroscopically guided, contrast-controlled right C3/4, C4/5, C5/6 facet joint injections with conscious sedation. Following review of allergy and review of potential side effects and complications, including, but not necessarily limited to, infection, allergic reaction, local tissue breakdown, stroke, temporary or permanent nerve injury and paralysis, the patient indicated that the patient understood and agreed to proceed. An informed consent document was signed by the patient, witnessed by a nurse, and placed in the patient's chart. Additionally, other treatment options including medications, modalities, and physical therapy were reviewed with the patient. After review of previous anaesthesic history and IV conscious sedation the patient was deemed safe to proceed with today?s procedure with IV conscious sedation as ASA class II designation. Safety time-out was performed to confirm patient ID, procedure to be performed and site of procedure. IV sedation was accomplished with a combination of 2mg of Versed and 50mcg of Fentanyl was administered by the RN after DO order, titrated to patient comfort during the course of the procedure while the patient remained responsive to all verbal commands In the prone position, following sterile prep and drape of the cervical spine region, the posterior aspect of the right C3/4, C4/5, C5/6 facet joints were identified fluoroscopically. The skin was anesthetized via a 25-gauge 1.5-inch needle with 1% lidocaine solution into the corresponding facet joints. At this point, a 25-gauge 2.5-inch spinal needle was atraumatically introduced and advanced under fluoroscopic guidance into the corresponding facet joints. Following negative aspiration, injections of approximately 0.2-cc of Isovue 200 confirmed interarticular placement without vascular uptake. At this point, a total of 1cc including 0.5 cc or 5mg of dexamethasone combined with 0.5cc of 1% lidocaine solution was injected without complication into each of the corresponding facet joints. The patient tolerated the procedure well without signs or symptoms of complications prior to transfer to the recovery area continued monitoring without incident. The patient was then transferred to the recovery area where they were observed for an appropriate period of time after the injection. The patient reported a VAS score of 7 prior to the procedure and a post-procedure VAS of 0. POST OP INSTRUCTIONS They were provided a Pain Log to continue to record their response to the target-specific procedure prior to their follow-up visit with their referring physician. Additionally, specific post-injection care instructions and a contact number to our office were provided if concerns arise regarding possible complications associated with the procedure are suspected.
== END 2024-04-11 11:03 | disposition home or self-care (01) ==
PROVIDERS: Referring Provider Physical Medicine & Rehabilitation; Visit Provider Physical Medicine & Rehabilitation
DX: M47.812 Spondylosis without myelopathy or radiculopathy, cervical region (principal)
CPT/HCPCS: 64490; 64491; 64492; 99152; J1100; J2250; J3010

== ENCOUNTER 2024-10-08 09:12 | Outpatient (CLI) | payer OTHER, SELFPAY ==
[2024-10-08] VITALS (10 sets, daily range): BP systolic 111–131; BP diastolic 59–79; PULSE 16–97; RESP 14–97; TEMP 36.6; O2SAT 97–100
--- NOTE | 2024-10-08 09:14 | DI.RAD.S_ITS ---
PROCEDURE: PAIN C/T FACET INJ/BLK 1ST L INDICATIONS: Right C3-4 C4-5 and C5-6 facet joint injection COMPARISON: [facility], , PAIN C/T FACET INJ/BLK 1ST L, 04/11/2024, 10:23. FINDINGS/IMPRESSION: Fluoroscopic spot filming was performed to verify placement of spinal needles at the right C3-4 through C5-6 level(s), as labeled on the films. Appropriate location(s) of the needle tip(s) was confirmed by injection of iodinated contrast. Dictated by: Jerry Chin M.D. on 10/08/2024 at 11:03 Approved by: Jerry Chin M.D. on 10/08/2024 at 11:04
[2024-10-08] MEDS: MIDAZOLAM 2 MG/2 ML VIAL IV ×2 (10:03→10:12)
[2024-10-08] MEDS: iopamidoL 15 ML VIAL 3 ML INJ (10:07)
[2024-10-08] MEDS: DEXAMETHASONE 10 MG/ML VIAL 30 MG INJ (10:08)
[2024-10-08] MEDS: BUPIVACAINE 0.5% (PF) 10 ML VIAL 2 ML INJ (10:09)
--- NOTE | 2024-10-08 10:26 | P.PCN_ITS ---
Date/Time/Diagnoses Date of procedure: 10/08/24 Time of procedure: 10:26 Procedure Notes Procedure: 1. FLUOROSCOPICALLY GUIDED, CONTRAST-CONTROLLED RIGHT C3/4, C4/5, C5/6 FACET JOINT INJECTIONS WITH CONSCIOUS SEDATION. Indications: [place] is referred for treatment of Axial Neck Pain Physician: Devon Zheng Total Fluoroscopy time (seconds): 15 Total sedation minutes: 18 Complications: none Procedure in detail & Post-procedure care: DESCRIPTION OF PROCEDURE Fluoroscopically guided, contrast-controlled right C3/4, C4/5, C5/6 facet joint injections with conscious sedation. Following review of allergy and review of potential side effects and compli cations, including, but not necessarily limited to, infection, allergic reaction, local tissue breakdown, stroke, temporary or permanent nerve injury and paralysis, the patient indicated that the patient understood and agreed to proceed. An informed consent document was signed by the patient, witnessed by a nurse, and placed in the patient's chart. Additionally, other treatment options including medications, modalities, and physical therapy were reviewed with the patient. After review of previous anaesthesic history and IV conscious sedation the patient was deemed safe to proceed with today?s procedure with IV conscious sedation as ASA class II designation. Safety time-out was performed to confirm patient ID, procedure to be performed and site of procedure. IV sedation was accomplished with a combination of 4mg of Versed was administered by the RN after DO order, titrated to patient comfort during the course of the procedure while the patient remained responsive to all verbal commands In the prone position, following sterile prep and drape of the cervical spine region, the posterior aspect of the right C3/4, C4/5, C5/6 facet joints were identified fluoroscopically. The skin was anesthetized via a 25-gauge 1.5-inch needle with 1% lidocaine solution into the corresponding facet joints. At this point, a 25-gauge 2.5-inch spinal needle was atraumatically introduced and adva nced under fluoroscopic guidance into the corresponding facet joints. Following negative aspiration, injections of approximately 0.2-cc of Isovue 200 confirmed interarticular placement without vascular uptake. At this point, a total of 1cc including 0.5 cc or 5mg of dexamethasone combined with 0.5cc of 1% lidocaine solution was injected without complication into each of the corresponding facet joints. The patient tolerated the procedure well without signs or symptoms of complications prior to transfer to the recovery area continued monitoring without incident. The patient was then transferred to the recovery area where they were observed for an appropriate period of time after the injection. The patient reported a VAS score of 7 prior to the procedure and a post- procedure VAS of 0. POST OP INSTRUCTIONS They were provided a Pain Log to continue to record their response to the target-specific procedure prior to their follow-up visit with their referring physician. Additionally, specific post-injection care instructions and a contact number to our office were provided if concerns arise regarding possible complications associated with the procedure are suspected.
== END 2024-10-08 10:42 | disposition home or self-care (01) ==
PROVIDERS: Referring Provider Physical Medicine & Rehabilitation; Visit Provider Physical Medicine & Rehabilitation
DX: M47.812 Spondylosis without myelopathy or radiculopathy, cervical region (principal)
CPT/HCPCS: 64490; 64491; 64492; 99152; J1100; J2250